=== PATIENT | male | born 1940 | race Caucasian/White ===

== ENCOUNTER 2022-04-24 10:23 | Observation (INO) | payer MEDICARE ==
--- NOTE | 2022-04-24 10:32 | ERPHSYRPT ---
- History of Present Illness Time Seen by Provider: 04/24/22 10:30 Exam Limitations: no limitations Physician History: Patient is 81-year-old male presents to emergency department for evaluation of progressive shortness of breath. Shortness of breath has been progressively worsening over the past 2 to 3 days. Patient has a history of COPD. Patient requires CPAP at night. He also requires 3 L nasal cannula 24 hours/day. Patient has audible wheezing. He is mildly tachypneic. No chest pain. No nausea vomiting or diaphoresis. Symptoms are progressive. Symptoms are moderate in intensity. No specific worsening improving factors. [id number] at bedside. Patient voices no other complaints or concerns at this time. Timing/Duration: yesterday Activities at Onset: none Severity of Dyspnea-Max: moderate Severity of Dyspnea-Current: mild Possible Cause: unknown cause Modifying Factors: Improves With: activity (Patient becomes significantly short of breath during exertion. Patient feels much better at rest. During exertion patient's oxygen saturation decreases into the 80s.) Associated Symptoms: edema (Chronic bilateral lower extremity swelling. Patient currently on a diuretic for leg swelling.), No chest pain/discomfort, No fever, No loss of appetite, No lightheadedness, No weakness, No calf pain (Negative Homans' sign bilaterally), No muscle spasms feet, No muscle spasms hands, No productive cough, No tightness, No tingling hands Allergies/Adverse Reactions: No Known Drug Allergies Allergy (Verified 04/24/22 10:36) Home Medications: Albuterol Sulfate [Albuterol Sulfate Hfa] 8.5 gm IH DAILY 04/24/22 [History] Celecoxib 100 mg [celeBREX 100 MG] 200 mg PO DAILY 04/24/22 [History] Fluticasone/Umeclidin/Vilanter [Trelegy Ellipta 200-62.5-25] 1 blist IH DAILY 04/24/22 [History] Furosemide 40 mg [Lasix 40 MG] 40 mg PO DAILY 04/24/22 [History] Icosapent Ethyl [Vascepa] 1 cap PO DAILY 04/24/22 [History] Insulin Aspart [Novolog] 100 unit SQ DAILY 04/24/22 [History] Insulin Detemir [Levemir] 100 unit SQ DAILY 04/24/22 [History] Metoprolol Succinate [Toprol Xl] 25 mg PO BID 04/24/22 [History] PANTOPRAZOLE 40 mg Tablet [Protonix 40MG Tablet] 40 mg PO DAILY 04/24/22 [History] Pen Needle, Diabetic [Novofine Plus] 1 04/24/22 [History] Pioglitazone HCl 30 mg PO DAILY 04/24/22 [History] Pravastatin Sodium 20 mg PO DAILY 04/24/22 [History] - Review of Systems Constitutional: No Symptoms, No Fever, No Chills Eyes: No Symptoms Ears, Nose, & Throat: No Symptoms Respiratory: No Symptoms, No Cough, No Dyspnea Cardiac: No Symptoms, No Chest Pain, No Edema, No Syncope Abdominal/Gastrointestinal: No Symptoms, No Abdominal Pain, No Nausea, No Vomiting, No Diarrhea Genitourinary Symptoms: No Symptoms, No Dysuria Musculoskeletal: No Symptoms, No Back Pain, No Neck Pain Skin: No Symptoms, No Rash Neurological: No Symptoms, No Dizziness, No Focal Weakness, No Sensory Changes Psychological: No Symptoms Endocrine: No Symptoms Hematologic/Lymphatic: No Symptoms Immunological/Allergic: No Symptoms All Other Systems: Reviewed and Negative - Nursing Vital Signs Nursing Vital Signs: Initial Vital Signs Temperature 97.7 F 04/24/22 10:23 Pulse Rate 94 H 04/24/22 10:23 Respiratory Rate 28 H 04/24/22 10:23 Blood Pressure 166/70 04/24/22 10:23 O2 Sat by Pulse Oximetry 93 L 04/24/22 10:23 Pain Scale Pain Intensity 0 - Physical Exam General Appearance: no apparent distress, alert Eye Exam: PERRL/EOMI, eyes nml inspection Ears, Nose, Throat Exam: hearing grossly normal, normal ENT inspection, normal pharynx Neck Exam: normal inspection, supple Respiratory Exam: wheezing (Wheezing mild tachypnea.), No lungs clear Cardiovascular/Chest Exam: normal heart sounds, regular rate/rhythm Abdominal/Gastrointestinal Exam: soft, No tenderness, No distention, No mass Extremity Exam: non-tender, normal range of motion, normal inspection, no calf tenderness, no pedal edema Peripheral Pulses Exam: dorsalis-pedis (R): 2+, dorsalis-pedis (L): 2+ Neurologic Exam: alert, oriented x 3, cooperative, 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 Clear lung fleming. Osteopenia. Mild scoliosis degenerative changes observed) Ordered Tests: Active Orders 24 hr Category Date Time Status Benzol Operator STAT Care 04/24/22 10:44 Active EKG-ER Only STAT Care 04/24/22 10:43 Active IV Insertion STAT Care 04/24/22 10:43 Active Pulse Oximetry (ED) STAT Care 04/24/22 10:43 Active CHEST 1 VIEW (PORTABLE) Stat Exams 04/24/22 11:10 Completed BLOOD CULTURE Stat Lab 04/24/22 11:03 Received CBC W DIFF Stat Lab 04/24/22 11:00 Completed CMP Stat Lab 04/24/22 11:00 Completed TROPONIN Q3H Lab 04/24/22 11:00 Completed TROPONIN Q3H Lab 04/24/22 13:45 Ordered TROPONIN Q3H Lab 04/24/22 16:45 Ordered TROPONIN Q3H Lab 04/24/22 19:45 Ordered TROPONIN Q3H Lab 04/24/22 22:45 Ordered Respiratory Therapy Assessment DAILY RT 04/24/22 11:02 Completed Transfer Order Routine Transfer 04/24/22 Ordered Medication Summary Discontinued Medications Generic Name Dose Route Start Last Admin Trade Name Freq PRN Reason Stop Dose Admin Albuterol/Ipratropium 3 ml 04/24/22 10:45 04/24/22 11:01 Ipratropium/Albuterol Sulfate 3 Ml Ampul.Neb IH 04/24/22 10:46 3 ml STAT ONE Administration Albuterol/Ipratropium Confirm 04/24/22 10:59 Ipratropium/Albuterol Sulfate 3 Ml Ampul.Neb Administered 04/24/22 11:00 Dose 3 ml IH .STK-MED ONE Methylprednisolone Sodium 0 mg 04/24/22 10:45 04/24/22 10:52 Succinate 125 mg/ Sterile IV 04/24/22 10:46 125 mg Water 2 ml STAT ONE Administration Azithromycin 500 mg in 250 mls @ 250 mls/hr 04/24/22 10:46 04/24/22 11:48 Zithromax 500 Mg/ 250 Ml Nacl Premix IV 04/24/22 11:45 Infused STAT STA Infusion Ceftriaxone Sodium/Dextrose 2 g in 50 mls @ 100 mls/hr 04/24/22 10:46 04/24/22 11:29 Rocephin 2 Gm-D5w 50ml Bag IV 04/24/22 11:15 Infused STAT STA Infusion Azithromycin Confirm 04/24/22 10:49 Zithromax 500 Mg/ 250 Ml Nacl Premix Administered 04/24/22 10:50 Dose 500 mg in 250 mls @ ud IV .STK-MED ONE Ceftriaxone Sodium/Dextrose Confirm 04/24/22 10:49 Rocephin 2 Gm-D5w 50ml Bag Administered 04/24/22 10:50 Dose 2 g in 50 mls @ ud IV .STK-MED ONE Methylprednisolone Sodium Succinate Confirm 04/24/22 10:49 Methylprednis Sod Succ 125 Mg/2 Ml Vial Administered 04/24/22 10:50 Dose 125 mg .ROUTE .STK-MED ONE Sterile Water Confirm 04/24/22 10:49 Water For Injection,Sterile 10 Ml Vial Administered 04/24/22 10:50 Dose 10 ml IJ .STK-MED ONE Lab/Rad Data: Laboratory Result Diagrams 04/24/22 11:00 04/24/22 11:00 Laboratory Results 04/24/22 04/24/22 04/24/22 Range/Units 11:04 11:00 11:00 WBC (4.0-10.5) x10^3/uL RBC (4.1-5.6) x10^6/uL Hgb (12.5-18.0) g/dL Hct (42-50) % MCV (78-100) fL MCH (26-32) pg MCHC (32-36) g/dL RDW (11.5-14.0) % Plt Count (150-450) x10^3/uL MPV (7.5-11.0) fL Gran % (36.0-66.0) % Immature Gran % (Auto) (0.00-0.4) % Nucleat RBC Rel Count (0.00-0.1) % Eos # (Auto) (0-0.5) x10^3/uL Immature Gran # (Auto) (0.00-0.03) x10^3u/L Absolute Lymphs (auto) (1.0-4.6) x10^3/uL Absolute Monos (auto) (0.0-1.3) x10^3/uL Absolute Nucleated RBC (0.00-0.01) x10^3u/L Lymphocytes % (24.0-44.0) % Monocytes % (0.0-12.0) % Eosinophils % (0.00-5.0) % Basophils % (0.0-0.4) % Absolute Granulocytes (1.4-6.9) x10^3/uL Basophils # (0-0.4) x10^3/uL Sodium 138 (137-145) mmol/L Potassium 5.0 (3.5-5.1) mmol/L Chloride 99 (98-107) mmol/L Carbon Dioxide 30 (22-30) mmol/L Anion Gap 14.0 (5-15) MEQ/L BUN 15 (9-20) mg/dL Creatinine 1.03 (0.66-1.25) mg/dL Estimated GFR > 60.0 ML/MIN Glucose 187 H (74-106) mg/dL Calcium 9.1 (8.4-10.2) mg/dL Total Bilirubin 0.70 (0.2-1.3) mg/dL AST 21 (17-59) U/L ALT 14 (0-50) U/L Alkaline Phosphatase 72 (38-126) U/L Troponin I < 0.012 (0.000-0.034) ng/mL Serum Total Protein 6.9 (6.3-8.2) g/dL Albumin 4.0 (3.5-5.0) g/dL Influenza Type A Ag NEGATIVE (NEGATIVE) Influenza Type B Ag NEGATIVE (NEGATIVE) RSV (PCR) NEGATIVE (Negative) SARS-CoV-2 (PCR) POSITIVE A (NEGATIVE) 04/24/22 Range/Units 11:00 WBC 6.5 (4.0-10.5) x10^3/uL RBC 4.22 (4.1-5.6) x10^6/uL Hgb 13.6 (12.5-18.0) g/dL Hct 41.3 L (42-50) % MCV 97.9 (78-100) fL MCH 32.2 H (26-32) pg MCHC 32.9 (32-36) g/dL RDW 13.7 (11.5-14.0) % Plt Count 255 (150-450) x10^3/uL MPV 9.0 (7.5-11.0) fL Gran % 61.0 (36.0-66.0) % Immature Gran % (Auto) 0.3 (0.00-0.4) % Nucleat RBC Rel Count 0.0 (0.00-0.1) % Eos # (Auto) 0.53 H (0-0.5) x10^3/uL Immature Gran # (Auto) 0.02 (0.00-0.03) x10^3u/L Absolute Lymphs (auto) 1.38 (1.0-4.6) x10^3/uL Absolute Monos (auto) 0.57 (0.0-1.3) x10^3/uL Absolute Nucleated RBC 0.00 (0.00-0.01) x10^3u/L Lymphocytes % 21.1 L (24.0-44.0) % Monocytes % 8.7 (0.0-12.0) % Eosinophils % 8.1 H (0.00-5.0) % Basophils % 0.8 (0.0-0.4) % Absolute Granulocytes 3.99 (1.4-6.9) x10^3/uL Basophils # 0.05 (0-0.4) x10^3/uL Sodium (137-145) mmol/L Potassium (3.5-5.1) mmol/L Chloride (98-107) mmol/L Carbon Dioxide (22-30) mmol/L Anion Gap (5-15) MEQ/L BUN (9-20) mg/dL Creatinine (0.66-1.25) mg/dL Estimated GFR ML/MIN Glucose (74-106) mg/dL Calcium (8.4-10.2) mg/dL Total Bilirubin (0.2-1.3) mg/dL AST (17-59) U/L ALT (0-50) U/L Alkaline Phosphatase (38-126) U/L Troponin I (0.000-0.034) ng/mL Serum Total Protein (6.3-8.2) g/dL Albumin (3.5-5.0) g/dL Influenza Type A Ag (NEGATIVE) Influenza Type B Ag (NEGATIVE) RSV (PCR) (Negative) SARS-CoV-2 (PCR) (NEGATIVE) - Progress Progress: improved Air Movement: good Progress Note: Case discussed with Dr. Carpenter covering Dr. Shah. Dr. Carpenter advises to transfer patient to the hospital where patient's pipe racker is on staff. 04/24/22 12:14 Case discussed with patient's pipe racker. Dr. Golden will see patient in our hospital tomorrow at this time. Dr. Carpenter accepts admission to observation. Work-up reveals a COPD exacerbation along with a COVID-positive test. Patient received DuoNeb treatment. Steroids administered. Blood cultures obtained. Antibiotics infused. Patient feels much better at this time. However he will require admission for further evaluation and treatment. Plan of care discussed with patient. He agrees to admission [facility] for further evaluation and treatment. Portions of this note were created with voice recognition technology. There may be grammatical, spelling, punctuation or sound alike errors 04/24/22 12:25 Blood Culture(s) Obtained: Yes Antibiotics given: Yes Discussed with : Aidan Will see patient in: other (Dr. Carpenter advises transferring patient to facility where patient's pipe racker is staffed) Counseled pt/family regarding: lab results, diagnosis, rad results - Departure Departure Disposition: Observation Clinical Impression: COVID-19, COPD exacerbation, SOB (shortness of breath) Condition: Stable Critical Care Time: No Referrals: [facility]LOCATION] - Follow up/PCP as directed Instructions: Chronic Obstructive Pulmonary Disease
[2022-04-24] MEDS ORDERED: DUONEB 0.5-3 MG/3 ml Neb IH ONE ×2 (10:45→10:59)
[2022-04-24] MEDS ORDERED: solu-MEDROL 125 MG, Sterile H2O 10 ml 2 ML IV ONE ×2 (10:45)
[2022-04-24] MEDS ORDERED: Zithromax 500 MG/ 250 ML NaCl Premix 500 MG/250 ML IVPB IV STA (10:46)
[2022-04-24] MEDS ORDERED: ROCEPHIN 2 Gm-D5w 50ML BAG** 2 G/50 ML IVPB IV STA (10:46)
[2022-04-24] MEDS ORDERED: ROCEPHIN 2 Gm-D5w 50ML BAG** 2 G/50 ML IVPB IV ONE (10:49)
[2022-04-24] MEDS ORDERED: solu-MEDROL ONE (10:49)
[2022-04-24] MEDS ORDERED: Zithromax 500 MG/ 250 ML NaCl Premix 500 MG/250 ML IVPB IV ONE (10:49)
[2022-04-24] MEDS ORDERED: Sterile H2O 10 ml IJ ONE (10:49)
[2022-04-24 11:06] LABS: Absolute Neutrophil Ct (ANC) 3.99 x10^3/uL (1.4-6.9); Basophil (Absolute #) 0.05 x10^3/uL (0-0.4); Eosinophil % 8.1 % (0.00-5.0); Eosinophil (Absolute #) 0.53 x10^3/uL (0-0.5); Hematocrit 41.3 % (42-50); Hemoglobin 13.6 g/dL (12.5-18.0); Lymphocyte (Absolute #) 1.38 x10^3/uL (1.0-4.6); Lymphocytes % 21.1 % (24.0-44.0); Mean Cell Volume 97.9 fL (78-100); Mean Corpuscular Hemoglobin 32.2 pg (26-32); Mean Corpuscular Hgb Concent. 32.9 g/dL (32-36); Monocyte (Absolute #) 0.57 x10^3/uL (0.0-1.3); Monocytes % 8.7 % (0.0-12.0); Platelet Count 255 x10^3/uL (150-450); Red Blood Count 4.22 x10^6/uL (4.1-5.6); Red Cell Distribution Width 13.7 % (11.5-14.0); White Blood Count 6.5 x10^3/uL (4.0-10.5)
--- NOTE | 2022-04-24 11:29 | XRAY ---
Indication: Short of breath. Comparison: February 23, 2022. Portable chest remains clear with incidental right hemidiaphragm elevation. Heart remains borderline enlarged. Bony thorax intact again with mild osteopenia, degenerative changes, and mild scoliosis. Impression: Continued nonacute chest with chronic features.
[2022-04-24 11:43] LABS: INFLUENZA A NEGATIVE (NEGATIVE); INFLUENZA B NEGATIVE (NEGATIVE); RESPIRATORY SYNCTIAL VIRUS NEGATIVE (Negative)
[2022-04-24 11:51] LABS: SARS-CoV-2 Xpert Express POSITIVE (NEGATIVE)
[2022-04-24 11:54] LABS: ALKALINE PHOSPHATASE 72 U/L (38-126); BLOOD UREA NITROGEN 15 mg/dL (9-20); CHLORIDE 99 mmol/L (98-107); Calcium 9.1 mg/dL (8.4-10.2); Carbon Dioxide 30 mmol/L (22-30); Creatinine 1 1.03 mg/dL (0.66-1.25); EST GLOMERULAR FILTRATION RATE > 60.0 ML/MIN; Glucose 187 mg/dL (74-106); SGOT/AST 21 U/L (17-59); SGPT/ALT 14 U/L (0-50); SODIUM 138 mmol/L (137-145); Total Protein 6.9 g/dL (6.3-8.2)
[2022-04-24] MEDS ORDERED: PROVENTIL 2.5 MG/3 ML NEB IH SCH (15:00)
[2022-04-24] MEDS ORDERED: Ativan 1 MG PO PRN (16:55)
[2022-04-24] MEDS ORDERED: Ativan 2 MG/1 ML VIAL IV PRN (16:56)
[2022-04-24] MEDS ORDERED: Zofran 4 MG/2 ML VIAL IV PRN (16:57)
[2022-04-24] MEDS ORDERED: HYDROCODONE-CHLORPHEN ER SUSP PO PRN (16:57)
[2022-04-24] MEDS ORDERED: TYLENOL EXTRA STRENGTH 500 MG PO PRN (16:57)
[2022-04-24] MEDS ORDERED: Sodium Chloride 0.9% 1000 ML 1,000 ML IV SCH (17:00)
[2022-04-24] MEDS ORDERED: MEDICATION INTERVENTION MC SCH (17:15)
[2022-04-24] MEDS ORDERED: VENTOLIN COMMON CANISTER IH SCH (17:15)
[2022-04-24] MEDS ORDERED: REMDESIVIR 200 MG in Sodium Chloride 0.9% 250 ML 250 ML IV ONE (18:00)
[2022-04-24] MEDS: ZOCOR 20MG PO SCH (18:37)
[2022-04-24] MEDS: ECOTRIN 81 MG PO SCH (18:37)
[2022-04-24] MEDS: Vitamin B-12 500 MCG PO SCH (18:38)
[2022-04-24] MEDS: Imdur 30 MG PO SCH (18:38)
[2022-04-24] MEDS: Protonix 40MG Tablet PO SCH (18:38)
[2022-04-24] MEDS: celeBREX 100 MG PO SCH (18:38)
[2022-04-24] MEDS: Actos 30 MG PO SCH (18:39)
[2022-04-24] MEDS: ENOXAPARIN SODIUM SQ SCH (18:40)
[2022-04-24] MEDS: HUMALOG SQ SCH (18:41)
[2022-04-24] MEDS: Zetia 10 MG PO SCH (18:46)
[2022-04-24] MEDS: solu-MEDROL 60 MG, Sterile H2O 10 ml 2 ML IV SCH ×2 (18:46)
[2022-04-24] MEDS ORDERED: PATIENT OWN MEDICATION IH SCH (19:00)
[2022-04-24] MEDS: Lasix 40 MG PO SCH (19:13)
[2022-04-24] MEDS: PATIENT OWN MEDICATION IH SCH (19:30)
[2022-04-24] MEDS: Pepcid 20 MG VIAL IV SCH (21:10)
[2022-04-24] MEDS: Artificial Tears 15 ML OP SCH (21:12)
[2022-04-24] MEDS: FISH OIL 1,000 MG CAPSULE PO SCH (21:13)
[2022-04-24] MEDS: Benicar 20 MG PO SCH (21:14)
[2022-04-24] MEDS: Toprol-Xl 25MG Tablets PO SCH (21:14)
[2022-04-24] MEDS ORDERED: NON-FORMULARY ITEM (Icosapent Ethyl [Vascepa] 1 GM Capsule) PO SCH (22:00)
[2022-04-24] MEDS ORDERED: HUMULIN R SQ ONE (22:00)
[2022-04-24] MEDS ORDERED: CARBOXYMETHYLCELLULOSE SODIUM OP SCH (22:00)
[2022-04-24] MEDS: Lantus Insulin SQ SCH (22:29)
[2022-04-25] MEDS: solu-MEDROL 60 MG, Sterile H2O 10 ml 2 ML IV SCH ×2 (02:28)
[2022-04-25 05:12] LABS: Basophil (Absolute #) 0.01 x10^3/uL (0-0.4); Eosinophil (Absolute #) 0 x10^3/uL (0-0.5); Hematocrit 43.5 % (42-50); Hemoglobin 14.2 g/dL (12.5-18.0); Lymphocyte (Absolute #) 1.45 x10^3/uL (1.0-4.6); Mean Cell Volume 99.1 fL (78-100); Mean Corpuscular Hemoglobin 32.3 pg (26-32); Mean Corpuscular Hgb Concent. 32.6 g/dL (32-36); Monocyte (Absolute #) 0.25 x10^3/uL (0.0-1.3); Monocytes % 2.6 % (0.0-12.0); Platelet Count 260 x10^3/uL (150-450); Red Blood Count 4.39 x10^6/uL (4.1-5.6); Red Cell Distribution Width 13.6 % (11.5-14.0); White Blood Count 9.6 x10^3/uL (4.0-10.5)
[2022-04-25 05:35] LABS: ALBUMIN 4.1 g/dL (3.5-5.0); ALKALINE PHOSPHATASE 71 U/L (38-126); ANION GAP 17.2 MEQ/L (5-15); BLOOD UREA NITROGEN 22 mg/dL (9-20); CHLORIDE 95 mmol/L (98-107); Calcium 8.8 mg/dL (8.4-10.2); Carbon Dioxide 25 mmol/L (22-30); Creatinine 1 1.05 mg/dL (0.66-1.25); EST GLOMERULAR FILTRATION RATE > 60.0 ML/MIN; Glucose 245 mg/dL (74-106); NT PRO BNP 394 pg/mL (0-1800); Potassium 4.4 mmol/L (3.5-5.1); SGOT/AST 23 U/L (17-59); SGPT/ALT 17 U/L (0-50); SODIUM 133 mmol/L (137-145)
[2022-04-25] MEDS: PATIENT OWN MEDICATION IH SCH ×4 (06:14→19:15)
[2022-04-25] MEDS ORDERED: PATIENT OWN MEDICATION IH SCH (07:00)
[2022-04-25] MEDS ORDERED: NON-FORMULARY ITEM (Insulin Aspart [Novolog] 100 UNIT/ML Vial) SQ SCH (07:30)
[2022-04-25] MEDS: HUMALOG SQ SCH ×3 (08:02→17:00)
[2022-04-25] MEDS: Imdur 30 MG PO SCH (08:45)
[2022-04-25] MEDS: Protonix 40MG Tablet PO SCH (08:45)
[2022-04-25] MEDS: ZOCOR 20MG PO SCH (08:45)
[2022-04-25] MEDS: ECOTRIN 81 MG PO SCH (08:45)
[2022-04-25] MEDS: Pepcid 20 MG VIAL IV SCH ×2 (08:45→21:06)
[2022-04-25] MEDS: ENOXAPARIN SODIUM SQ SCH (08:45)
[2022-04-25] MEDS: Actos 30 MG PO SCH (08:46)
[2022-04-25] MEDS: Lasix 40 MG PO SCH (08:46)
[2022-04-25] MEDS: Artificial Tears 15 ML OP SCH ×3 (08:47→21:06)
[2022-04-25] MEDS: celeBREX 100 MG PO SCH (08:48)
[2022-04-25] MEDS: FISH OIL 1,000 MG CAPSULE PO SCH ×2 (08:54→21:05)
[2022-04-25] MEDS: Toprol-Xl 25MG Tablets PO SCH ×2 (08:55→21:05)
[2022-04-25] MEDS: Vitamin B-12 500 MCG PO SCH (08:55)
[2022-04-25] MEDS: DECADRON 10MG INJ. IV SCH (08:58)
[2022-04-25] MEDS: Zetia 10 MG PO SCH (08:59)
[2022-04-25] MEDS ORDERED: NON-FORMULARY ITEM (Fluticasone/Umeclidin/Vilanter [Trelegy Ellipta 200-62.5-25] 1 EACH Bl IH SCH (10:00)
[2022-04-25] MEDS ORDERED: NON-FORMULARY ITEM (Cyanocobalamin (Vitamin B-12) [Vitamin B12] 2,500 MCG Tablet) PO SCH (10:00)
[2022-04-25] MEDS ORDERED: NON-FORMULARY ITEM (Pravastatin Sodium [Pravastatin Sodium] 20 MG Tablet) PO SCH (10:00)
[2022-04-25] MEDS ORDERED: Zithromax 500 MG/ 250 ML NaCl Premix 500 MG/250 ML IVPB IV SCH (10:00)
[2022-04-25] MEDS ORDERED: ROCEPHIN 1 Gm-D5w 50 ml Bag** 1 G/50 ML IVPB IV SCH (10:00)
--- NOTE | 2022-04-25 11:32 | PCM.HP ---
History of Present Illness - Chief Complaint Chief Complaint: covid POSITIVE History of Present Illness: is an 81 year old male patient of Dr Miller who presented to ER with shortness of breath x 2-3 days.States he could barely have his O2 off long enough to use the restroom due to air hunger. He is followed by [employer] Dr Nava for oxygen dependent COPD and sleep apnea. PMHx includes HTN,CAD/HX HI, IDDM,macular degeneration and Arthritis,former smoker,COPD,Sleep apnea. ER evaluation - tested positive for Covid ,CXR-no acute changes,borderline cardiomegally(unchanged),BNP not elevated. Patient is admitted to Covid unit. Remdesivir protocol started,discussed with patient and he agreed.Dr Nava was notified of admission and will be following patient. At his time he is comfortable on 3L O2 at bedrest. - Review of Systems Constitutional: Fatigue Eyes: No Symptoms (hx Mac deg) Ears, Nose, & Throat: Sinus Drainage (states can feel it draining in his throat) Respiratory: Short Of Breath, Wheezing Cardiac: No Symptoms Abdominal/Gastrointestinal: No Symptoms Genitourinary Symptoms: No Symptoms Musculoskeletal: Arthralgias (chronic) Skin: No Symptoms Neurological: No Symptoms Psychological: No Symptoms Endocrine: Other (Has had low sugars and decreased mealtime insulin from 20 to 10 units) Hematologic/Lymphatic: No Symptoms Medications & Allergies Home Medications: Home Medication List Albuterol Sulfate [Albuterol Sulfate Hfa] 2 puff IH Q6H 04/24/22 [History Confirmed 04/24/22] Aspirin EC 81 mg [Ecotrin 81 mg] 81 mg PO DAILY 04/24/22 [History Confirmed 04/24/22] Carboxymethylcellulose Sodium [Refresh Tears] 1 each OP TID 04/24/22 [History Confirmed 04/24/22] Celecoxib 100 mg [celeBREX 100 MG] 200 mg PO DAILY 04/24/22 [History Confirmed 04/24/22] Cyanocobalamin (Vitamin B-12) [Vitamin B12] 1 each PO DAILY 04/24/22 [History Confirmed 04/24/22] Ezetimibe 10 mg [Zetia 10 MG] 10 mg PO DAILY 04/24/22 [History Confirmed 04/24/22] Fluticasone/Umeclidin/Vilanter [Trelegy Ellipta 200-62.5-25] 1 puff IH DAILY 04/24/22 [History Confirmed 04/24/22] Furosemide 40 mg [Lasix 40 MG] 40 mg PO DAILY 04/24/22 [History Confirmed 04/24/22] Icosapent Ethyl [Vascepa] 2 cap PO BID 04/24/22 [History Confirmed 04/24/22] Insulin Aspart [Novolog] 20 unit SQ AC 04/24/22 [History Confirmed 04/24/22] Insulin Detemir [Levemir] 70 unit SQ QHS 04/24/22 [History Confirmed 04/24/22] Isosorbide Mononitrate 30 mg [Imdur 30 MG] 30 mg PO DAILY 04/24/22 [History Confirmed 04/24/22] Metoprolol Succinate [Toprol Xl] 25 mg PO BID 04/24/22 [History Confirmed 04/24/22] Olmesartan Medoxomil 20 mg [Benicar 20 MG] 40 mg PO QHS 04/24/22 [History Confirmed 04/24/22] PANTOPRAZOLE 40 mg Tablet [Protonix 40MG Tablet] 40 mg PO DAILY 04/24/22 [History Confirmed 04/24/22] Pioglitazone HCl 15 mg PO DAILY 04/24/22 [History Confirmed 04/24/22] Pravastatin Sodium 20 mg PO DAILY 04/24/22 [History Confirmed 04/24/22] Allergies/Adverse Reactions: Allergies Allergy/AdvReac Type Severity Reaction Status Date / Time No Known Drug Allergies Allergy Verified 04/24/22 10:36 - Past Medical History Past Medical History: Yes Neurological History: No Pertinent History ENT History: Cataracts, Macular Degeneration Cardiac History: Angina, Coronary Artery Disease, High Cholesterol, Hypertension, Myocardial Infarction (HI) Respiratory History: COPD, Sleep Apnea Endocrine Medical History: Diabetes Type I Musculoskelatal History: Arthritis GI Medical History: No Pertinent History History: No Pertinent History Pyscho-Social History: No Pertinent History Male Reproductive Disorders: No Pertinent History - Past Surgical History Past Surgical History: Yes Neuro Surgical History: No Pertinent History Cardiac History: Cardiac Stent, Other GI Surgical History: No Pertinent History Genitourinary Surgical Hx: No Pertinent History Musculskeletal Surgical Hx: No Pertinent History Male Surgical History: No Pertinent History Other Surgical History: eye. shoulder left. fx skull - Social History Smoking Status: Former smoker Exposure to second hand smoke: No Alcohol: None Drug Use: none - Physical Exam Vital Signs: Vital Signs - 24 hr Temp Pulse Resp BP Pulse Ox 04/25/22 10:00 87 22 94 L 04/25/22 08:00 97.5 F 84 18 131/63 93 L 04/25/22 06:07 78 18 95 04/25/22 06:06 124/56 04/25/22 04:00 97.7 F 78 18 165/113 93 L 04/24/22 23:40 97.9 F 89 15 127/65 93 L 04/24/22 20:03 79 20 94 L 04/24/22 19:43 98.2 F 93 H 21 129/58 90 L 04/24/22 16:00 98.2 F 90 22 130/62 93 L 04/24/22 14:32 98.5 F 85 20 135/76 94 L 04/24/22 12:56 99.0 F 78 22 105/59 98 04/24/22 12:27 93 L 04/24/22 12:00 78 105/59 93 L 04/24/22 11:30 97.7 F 85 20 152/69 92 L General Appearance: no apparent distress (resting, sittin up in bed) Eye Exam: eyes nml inspection Ears, Nose, Throat Exam: pharynx normal (mild PND no exudate), moist mucous membranes Respiratory Exam: diminished breath sounds, wheezing (left mid lung) Cardiovascular Exam: regular rate/rhythm Gastrointestinal/Abdomen Exam: soft, normal bowel sounds (nontender) Rectal Exam: not done Back Exam: normal inspection Extremity Exam: normal inspection Skin Exam: normal color, warm, dry Results - Labs Lab/Micro Results: Lab Results-Last 24 Hours 04/24/22 04/24/22 04/24/22 Range/Units 11:00 11:00 11:04 WBC (4.0-10.5) x10^3/uL RBC (4.1-5.6) x10^6/uL Hgb (12.5-18.0) g/dL Hct (42-50) % MCV (78-100) fL MCH (26-32) pg MCHC (32-36) g/dL RDW (11.5-14.0) % Plt Count (150-450) x10^3/uL MPV (7.5-11.0) fL Gran % (36.0-66.0) % Immature Gran % (Auto) (0.00-0.4) % Nucleat RBC Rel Count (0.00-0.1) % Eos # (Auto) (0-0.5) x10^3/uL Immature Gran # (Auto) (0.00-0.03) x10^3u/L Absolute Lymphs (auto) (1.0-4.6) x10^3/uL Absolute Monos (auto) (0.0-1.3) x10^3/uL Absolute Nucleated RBC (0.00-0.01) x10^3u/L Lymphocytes % (24.0-44.0) % Monocytes % (0.0-12.0) % Eosinophils % (0.00-5.0) % Basophils % (0.0-0.4) % Absolute Granulocytes (1.4-6.9) x10^3/uL Basophils # (0-0.4) x10^3/uL D-Dimer (0.0-0.50) ng/mL Sodium 138 (137-145) mmol/L Potassium 5.0 (3.5-5.1) mmol/L Chloride 99 (98-107) mmol/L Carbon Dioxide 30 (22-30) mmol/L Anion Gap 14.0 (5-15) MEQ/L BUN 15 (9-20) mg/dL Creatinine 1.03 (0.66-1.25) mg/dL Estimated GFR > 60.0 ML/MIN Glucose 187 H (74-106) mg/dL POC Glucometer (74 to 106) mg/dL Calcium 9.1 (8.4-10.2) mg/dL Total Bilirubin 0.70 (0.2-1.3) mg/dL AST 21 (17-59) U/L ALT 14 (0-50) U/L Alkaline Phosphatase 72 (38-126) U/L Troponin I < 0.012 (0.000-0.034) ng/mL NT-Pro-B Natriuret Pep (0-1800) pg/mL Serum Total Protein 6.9 (6.3-8.2) g/dL Albumin 4.0 (3.5-5.0) g/dL Influenza Type A Ag NEGATIVE (NEGATIVE) Influenza Type B Ag NEGATIVE (NEGATIVE) RSV (PCR) NEGATIVE (Negative) SARS-CoV-2 (PCR) POSITIVE A (NEGATIVE) 04/24/22 04/24/22 04/24/22 Range/Units 13:56 17:12 17:12 WBC (4.0-10.5) x10^3/uL RBC (4.1-5.6) x10^6/uL Hgb (12.5-18.0) g/dL Hct (42-50) % MCV (78-100) fL MCH (26-32) pg MCHC (32-36) g/dL RDW (11.5-14.0) % Plt Count (150-450) x10^3/uL MPV (7.5-11.0) fL Gran % (36.0-66.0) % Immature Gran % (Auto) (0.00-0.4) % Nucleat RBC Rel Count (0.00-0.1) % Eos # (Auto) (0-0.5) x10^3/uL Immature Gran # (Auto) (0.00-0.03) x10^3u/L Absolute Lymphs (auto) (1.0-4.6) x10^3/uL Absolute Monos (auto) (0.0-1.3) x10^3/uL Absolute Nucleated RBC (0.00-0.01) x10^3u/L Lymphocytes % (24.0-44.0) % Monocytes % (0.0-12.0) % Eosinophils % (0.00-5.0) % Basophils % (0.0-0.4) % Absolute Granulocytes (1.4-6.9) x10^3/uL Basophils # (0-0.4) x10^3/uL D-Dimer (0.0-0.50) ng/mL Sodium (137-145) mmol/L Potassium (3.5-5.1) mmol/L Chloride (98-107) mmol/L Carbon Dioxide (22-30) mmol/L Anion Gap (5-15) MEQ/L BUN (9-20) mg/dL Creatinine (0.66-1.25) mg/dL Estimated GFR ML/MIN Glucose (74-106) mg/dL POC Glucometer 171 H 171 H (74 to 106) mg/dL Calcium (8.4-10.2) mg/dL Total Bilirubin (0.2-1.3) mg/dL AST (17-59) U/L ALT (0-50) U/L Alkaline Phosphatase (38-126) U/L Troponin I < 0.012 (0.000-0.034) ng/mL NT-Pro-B Natriuret Pep (0-1800) pg/mL Serum Total Protein (6.3-8.2) g/dL Albumin (3.5-5.0) g/dL Influenza Type A Ag (NEGATIVE) Influenza Type B Ag (NEGATIVE) RSV (PCR) (Negative) SARS-CoV-2 (PCR) (NEGATIVE) 04/24/22 04/24/22 04/25/22 Range/Units 20:04 21:32 04:25 WBC 9.6 (4.0-10.5) x10^3/uL RBC 4.39 (4.1-5.6) x10^6/uL Hgb 14.2 (12.5-18.0) g/dL Hct 43.5 (42-50) % MCV 99.1 (78-100) fL MCH 32.3 H (26-32) pg MCHC 32.6 (32-36) g/dL RDW 13.6 (11.5-14.0) % Plt Count 260 (150-450) x10^3/uL MPV 9.0 (7.5-11.0) fL Gran % 82.0 H (36.0-66.0) % Immature Gran % (Auto) 0.3 (0.00-0.4) % Nucleat RBC Rel Count 0.0 (0.00-0.1) % Eos # (Auto) 0 (0-0.5) x10^3/uL Immature Gran # (Auto) 0.03 (0.00-0.03) x10^3u/L Absolute Lymphs (auto) 1.45 (1.0-4.6) x10^3/uL Absolute Monos (auto) 0.25 (0.0-1.3) x10^3/uL Absolute Nucleated RBC 0.00 (0.00-0.01) x10^3u/L Lymphocytes % 15.0 L (24.0-44.0) % Monocytes % 2.6 (0.0-12.0) % Eosinophils % 0.0 (0.00-5.0) % Basophils % 0.1 (0.0-0.4) % Absolute Granulocytes 7.90 H (1.4-6.9) x10^3/uL Basophils # 0.01 (0-0.4) x10^3/uL D-Dimer (0.0-0.50) ng/mL Sodium (137-145) mmol/L Potassium (3.5-5.1) mmol/L Chloride (98-107) mmol/L Carbon Dioxide (22-30) mmol/L Anion Gap (5-15) MEQ/L BUN (9-20) mg/dL Creatinine (0.66-1.25) mg/dL Estimated GFR ML/MIN Glucose (74-106) mg/dL POC Glucometer 382 H (74 to 106) mg/dL Calcium (8.4-10.2) mg/dL Total Bilirubin (0.2-1.3) mg/dL AST (17-59) U/L ALT (0-50) U/L Alkaline Phosphatase (38-126) U/L Troponin I < 0.012 (0.000-0.034) ng/mL NT-Pro-B Natriuret Pep (0-1800) pg/mL Serum Total Protein (6.3-8.2) g/dL Albumin (3.5-5.0) g/dL Influenza Type A Ag (NEGATIVE) Influenza Type B Ag (NEGATIVE) RSV (PCR) (Negative) SARS-CoV-2 (PCR) (NEGATIVE) 04/25/22 04/25/22 04/25/22 Range/Units 04:25 04:25 05:40 WBC (4.0-10.5) x10^3/uL RBC (4.1-5.6) x10^6/uL Hgb (12.5-18.0) g/dL Hct (42-50) % MCV (78-100) fL MCH (26-32) pg MCHC (32-36) g/dL RDW (11.5-14.0) % Plt Count (150-450) x10^3/uL MPV (7.5-11.0) fL Gran % (36.0-66.0) % Immature Gran % (Auto) (0.00-0.4) % Nucleat RBC Rel Count (0.00-0.1) % Eos # (Auto) (0-0.5) x10^3/uL Immature Gran # (Auto) (0.00-0.03) x10^3u/L Absolute Lymphs (auto) (1.0-4.6) x10^3/uL Absolute Monos (auto) (0.0-1.3) x10^3/uL Absolute Nucleated RBC (0.00-0.01) x10^3u/L Lymphocytes % (24.0-44.0) % Monocytes % (0.0-12.0) % Eosinophils % (0.00-5.0) % Basophils % (0.0-0.4) % Absolute Granulocytes (1.4-6.9) x10^3/uL Basophils # (0-0.4) x10^3/uL D-Dimer 0.54 H (0.0-0.50) ng/mL Sodium 133 L (137-145) mmol/L Potassium 4.4 (3.5-5.1) mmol/L Chloride 95 L (98-107) mmol/L Carbon Dioxide 25 (22-30) mmol/L Anion Gap 17.2 H (5-15) MEQ/L BUN 22 H (9-20) mg/dL Creatinine 1.05 (0.66-1.25) mg/dL Estimated GFR > 60.0 ML/MIN Glucose 245 H (74-106) mg/dL POC Glucometer 292 H (74 to 106) mg/dL Calcium 8.8 (8.4-10.2) mg/dL Total Bilirubin 0.40 (0.2-1.3) mg/dL AST 23 (17-59) U/L ALT 17 (0-50) U/L Alkaline Phosphatase 71 (38-126) U/L Troponin I (0.000-0.034) ng/mL NT-Pro-B Natriuret Pep 394 (0-1800) pg/mL Serum Total Protein 7.0 (6.3-8.2) g/dL Albumin 4.1 (3.5-5.0) g/dL Influenza Type A Ag (NEGATIVE) Influenza Type B Ag (NEGATIVE) RSV (PCR) (Negative) SARS-CoV-2 (PCR) (NEGATIVE) Accuchecks Date 04/25/22 Date 04/24/22 Date 04/24/22 Time 06:01 Time 21:00 Time 21:00 - Radiology Impressions Radiology Exams & Impressions: Radiology Procedures Category Date Time Status CHEST 1 VIEW (PORTABLE) Stat Exams 04/24/22 11:10 Completed - Other Procedures and Tests Respiratory Therapy 04/24/22 19:58 Oxygen Nasal Cannula 3 lpm Respiratory Therapy Assessment DAILY 04/24/22 19:59 BiPap/CPAP ROUTINE 04/24/22 20:19 Respiratory MDI BID 04/25/22 07:00 Respiratory MDI DAILY Assessment/Plan (1) COVID-19 Current Visit: Yes Status: Acute Assessment & Plan: admit to Covid unit ,start Remdesivir and Covid unit protocal . DR Nava Nozzle [employer] Slee[employer] Worker to follow. Code(s): U07.1 - COVID-19 (2) COPD exacerbation Current Visit: Yes Status: Acute Assessment & Plan: see orders Code(s): J44.1 - CHRONIC OBSTRUCTIVE PULMONARY DISEASE W (ACUTE) EXACERBATION (3) IDDM (insulin dependent diabetes mellitus) Current Visit: Yes Status: Chronic Assessment & Plan: see orders Code(s): BKF0726 - (4) Sleep apnea Current Visit: Yes Status: Chronic Assessment & Plan: o2 sats monitored Code(s): G47.30 - SLEEP APNEA, UNSPECIFIED (5) HTN (hypertension) Current Visit: Yes Status: Chronic Assessment & Plan: monitor Code(s): I10 - ESSENTIAL (PRIMARY) HYPERTENSION
[2022-04-25] MEDS: REMDESIVIR 100 MG in Sodium Chloride 0.9% 100 ML IV SCH (17:02)
[2022-04-25] MEDS: Benicar 20 MG PO SCH (21:05)
[2022-04-25] MEDS: Lantus Insulin SQ SCH (21:05)
[2022-04-26] MEDS ORDERED: PATIENT OWN MEDICATION IH SCH (07:00)
[2022-04-26] MEDS: PATIENT OWN MEDICATION IH SCH ×2 (07:29→07:50)
--- NOTE | 2022-04-26 07:57 | CONS ---
CONSULT DATE: 04/25/2022 HISTORY: Tu Murillo is an 81-year-old male who has been sick for the past few days. The patient was admitted to [facility] Emergency Room where he tested positive for COVID-19. He has been hospitalized and is currently being treated with Remdesivir and other standard therapy. He does report feeling better. He is on oxygen via nasal cannula at 3 liters. His oxygen saturation has been high 90's. He does have nonproductive cough. PAST MEDICAL HISTORY: Positive for chronic obstructive pulmonary disease, obstructive sleep apnea, chronic hypoxemia, hypertension, diabetes mellitus, dyslipidemia, prostatic enlargement and obesity. PAST SURGICAL HISTORY: He stated he had right eye surgery in 2017, shoulder surgery, left eye surgery and colonoscopy. PERSONAL AND SOCIAL HISTORY: The patient is a former smoker. He quit smoking in the year 1999. He had smoked for 45 plus years with more than 20 pack year smoking history. 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 MEDICATIONS: Current medications are reviewed. ALLERGIES: NKDA. PHYSICAL EXAMINATION: This is an elderly male who appears comfortable, able to carry out a conversation, denies shortness of breath. VITAL SIGNS: Temperature 97.5F, heart rate 87, blood pressure 131/63 mm of Mercury. Saturating 95% on 3 liters nasal cannula. HEENT: Normocephalic. Oral exam shows small oropharynx. NECK: Supple. CVS: First and second heart sounds are normal, regular, rhythmic. RESPIRATORY: Shows diminished breath sounds, clear. ABDOMEN: Obese. EXTREMITIES: Trace edema is noted. LABORATORY DATA AND TESTS: Labs reviewed. Troponin is negative. Influenza A, B and respiratory syncytial virus were negative. White count 9.6, hemoglobin 14.2, hematocrit 43.5, PLT count 260,000. Chest x-ray noted. ASSESSMENT: This is an 81-year-old man admitted with: 1) Acute/chronic hypoxic respiratory failure. 2) COVID-19 positive. 3) Viral pneumonia. 4) Underlying chronic obstructive pulmonary disease. 5) Sleep apnea on CPAP. 6) Obesity. 7) Comorbidities listed above. RECOMMENDATIONS: 1) The patient is continued on current standard of care including Remdesivir. 2) Continue supplemental oxygen. 3) Continue antibiotics, steroids with taper, deep vein thrombosis prophylaxis. 4) Advised to complete therapy of five days IV prior to being discharged. 5) Advised to follow up with me in the outpatient setting. I will be available as needed. Thank you for allowing me to participate in the care of Tu Murillo.
[2022-04-26] MEDS: HUMALOG SQ SCH ×2 (08:21→12:16)
[2022-04-26] MEDS: DECADRON 10MG INJ. IV SCH (09:00)
[2022-04-26] MEDS: Lasix 40 MG PO SCH (09:00)
[2022-04-26] MEDS: Pepcid 20 MG VIAL IV SCH (09:00)
[2022-04-26] MEDS: ENOXAPARIN SODIUM SQ SCH (09:00)
[2022-04-26] MEDS: Imdur 30 MG PO SCH (09:00)
[2022-04-26] MEDS: Zetia 10 MG PO SCH (09:00)
[2022-04-26] MEDS: ZOCOR 20MG PO SCH (09:00)
[2022-04-26] MEDS: ECOTRIN 81 MG PO SCH (09:00)
[2022-04-26] MEDS: Protonix 40MG Tablet PO SCH (09:00)
[2022-04-26] MEDS: Toprol-Xl 25MG Tablets PO SCH (09:01)
[2022-04-26] MEDS: Actos 30 MG PO SCH (09:01)
[2022-04-26] MEDS: Artificial Tears 15 ML OP SCH (09:01)
[2022-04-26] MEDS: celeBREX 100 MG PO SCH (09:02)
[2022-04-26] MEDS: FISH OIL 1,000 MG CAPSULE PO SCH (09:02)
[2022-04-26] MEDS: Vitamin B-12 500 MCG PO SCH (09:03)
[2022-04-26 12:13] VITALS: BP 144/71; PULSE 83
[2022-04-26] MEDS: REMDESIVIR 100 MG in Sodium Chloride 0.9% 100 ML IV SCH (13:00)
[2022-04-26 14:07] VITALS: O2SAT 94
== END 2022-04-26 14:35 | disposition home health service (06) ==
LOC: ED 10:23 → MED SURG 13:05
PROVIDERS: ADMIT Family Medicine; ATTEND Family Medicine
DX: U07.1 COVID-19 (principal); J44.1 Chronic obstructive pulmonary disease with (acute) exacerbation; E11.9 Type 2 diabetes mellitus without complications; J96.11 Chronic respiratory failure with hypoxia; G47.30 Sleep apnea, unspecified; I10 Essential (primary) hypertension; I25.10 Atherosclerotic heart disease of native coronary artery without angina pectoris; E78.00 Pure hypercholesterolemia, unspecified; I25.2 Old myocardial infarction; Z79.899 Other long term (current) drug therapy; Z99.81 Dependence on supplemental oxygen
CPT/HCPCS: 0241U; 36000; 36415; 71045; 80053; 82947; 83880; 84484; 85025; 85379; 87040; 93005; 93041; 93268; 94640; 94760; 94762; 96365; 96368; 96374; 99285; G0378; 96360; J0248; J0456; J0696; J1100; J1650; J1815; J1817; J2930; A9270-GY